=== PATIENT | female | born 1975 | race Caucasian/White ===

== ENCOUNTER 2019-01-29 13:54 | Outpatient (REF) | payer SELFPAY ==
--- NOTE | 2019-01-29 08:30 | PAPFT_PTH ---
PATIENT: Pastora Neumann LOC: [facility] U#:[id number] AGE/SX: 43/F ROOM: RE01/29/[address]: Luisa Cm : 1975 BED: DIS: 01/29/2019 SPEC #: [id number] RECD: 01/30/19 12:24 STATUS: ALEJANDRO FELIX #: [id number] ADE: 01/29/19 08:[address]: Luisa Pierce DEPT: ON LICENSE OF [facility] Cytology RECD BY: Ngoc Sheppard ENTERED: 01/30/19 12:24 SP TYPE: PAPFT OTHR DR: Cordell Garces Tissues: 1 - CX/ENDOCX FOR PAP SMEARS Procedures: PAP THIN PREP/[facility] Screening HPV DNA PROBE Comments: [id number]
[2019-01-29 21:58] LABS: Calculated LDL 84 mg/dL; Cholesterol 189 mg/dL (50-200); Glucose 96 mg/dL (70-100); HDL Cholesterol 92 mg/dL (40-60); Triglyceride 67 mg/dL (30-150)
== END 2019-01-29 14:14 ==
LOC: NCHCN 13:54
PROVIDERS: Visit Provider Nurse Practitioner Family
DX: Z13.1 Encounter for screening for diabetes mellitus (principal); Z13.220 Encounter for screening for lipoid disorders; Z12.4 Encounter for screening for malignant neoplasm of cervix; Z11.51 Encounter for screening for human papillomavirus (HPV); Z00.00 Encounter for general adult medical examination without abnormal findings
CPT/HCPCS: 80061; 82947; 83721; 88142; 87624

== ENCOUNTER 2025-01-15 20:52 | Outpatient (REF) | payer MEDICAID, SELFPAY ==
--- NOTE | 2025-01-15 13:30 | PAPFT_PTH ---
PATIENT: Pastora Neumann LOC: [facility] U#:[id number] AGE/SX: 49/F ROOM: RE01/15/[address]: Jolynn Field : 1975 BED: DIS: 01/15/2025 SPEC #: [id number] RECD: 01/16/25 09:47 STATUS: ALEJANDRO FELIX #: [id number] ADE: 01/15/25 13:[address]: Jolynn Field DEPT: [facility] Cytology RECD BY: Corry Du Tissues: 1 - CX/ENDOCX FOR PAP SMEARS Procedures: PAP THIN PREP/[facility] Screening HPV DNA PROBE Comments: [id number] (HPV 16 & 18/45) (CHLAMYDIA/GC)
[2025-01-15 21:48] LABS: ALT 23 U/L (14-59); AST 22 U/L (15-37); Albumin 3.9 g/dL (3.4-5.0); Alkaline Phosphatase 66 U/L (46-116); Anion Gap 10.6 mmol/L (3-11); BUN 19 mg/dL (7-18); Bilirubin, Total 0.6 mg/dL (0.2-1.0); CO2 26.4 mmol/L (21.0-32.0); Calcium 8.9 mg/dL (8.5-10.1); Chloride 104 mmol/L (98-107); Estimated GFR 61.60 (mL/min/1.73m2); Glucose 95 mg/dL (74-106); Potassium 3.6 mmol/L (3.5-5.1); Sodium 141 mmol/L (136-145); Total Protein 7.2 g/dL (6.4-8.2)
[2025-01-17 12:25] LABS: Chlamydia Result Negative (Negative); GC Result Negative (Negative)
== END 2025-01-15 20:53 | disposition home or self-care (01) ==
LOC: NCHCN 20:52
PROVIDERS: PCP Nurse Practitioner Family; Visit Provider Nurse Practitioner Family
DX: Z00.00 Encounter for general adult medical examination without abnormal findings (principal)
CPT/HCPCS: 80053; 87491; 87591; 88142; 87624

== ENCOUNTER 2025-02-06 11:51 | Outpatient (REF) | payer MEDICAID, SELFPAY ==
[2025-02-06 15:38] LABS: BUN 15 mg/dL (7-18); Estimated GFR 90.27 (mL/min/1.73m2)
== END 2025-02-06 11:52 | disposition home or self-care (01) ==
LOC: NCHCN 11:51
PROVIDERS: PCP Nurse Practitioner Family; Visit Provider Nurse Practitioner Family
DX: R94.4 Abnormal results of kidney function studies (principal)
CPT/HCPCS: 84520; 82565

== ENCOUNTER 2025-05-29 03:31 | Outpatient (CLI) | payer MEDICAID, SELFPAY ==
[2025-05-29 09:29] LABS: HCT 40.8 % (36.0-46.0); HGB 13.7 g/dL (11.2-15.7); MCH 30.8 pg (27.0-33.0); MCHC 33.6 % (32.0-36.0); MCV 92 fL (80-95); MPV 9.7 fL (8.0-11.0); Platelet Count 292 10^3/uL (130-400); RBC 4.45 10^6/uL (3.93-5.22); RDW 12.1 % (11.7-14.6); RDW-SD 41.1 fL; WBC 7.57 10^3/uL (4.4-10.8)
[2025-06-05 17:36] LABS: Testosterone, Free 4.1 pg/mL (0.1-6.4)
== END 2025-05-29 03:32 | disposition home or self-care (01) ==
PROVIDERS: PCP Nurse Practitioner Family; Visit Provider Registered Nurse Emergency
DX: N95.0 Postmenopausal bleeding (principal)
CPT/HCPCS: 36415; 84402; 84403; 85027